=== PATIENT | male | born 1950 | race Caucasian/White ===

== ENCOUNTER 2022-01-01 13:04 | Emergency (ER) | payer MEDICARE ==
[2022-01-01 13:25] LABS: BASOPHILS # (AUTO) 0.1 10^3/uL (0.0-0.1); EOSINOPHILS # (AUTO) 0.2 10^3/uL (0.0-0.7); EOSINOPHILS % (AUTO) 3.6 %; HCT - HEMATOCRIT 45.6 % (42.0-52.0); HGB - HEMOGLOBIN 15.2 g/dL (14.0-18.0); LYMPHOCYTES # (AUTO) 1.8 10^3/uL (1.5-3.5); LYMPHOCYTES % (AUTO) 30.1 %; MEAN CORPUSCULAR HEMOGLOBIN 32.9 pg (27.0-31.0); MEAN CORPUSCULAR HGB CONC 33.3 g/dL (32.0-36.0); MEAN CORPUSCULAR VOLUME 98.7 fL (80.0-94.0); MONOCYTES # (AUTO) 0.7 10^3/uL (0.0-1.0); MONOCYTES % (AUTO) 10.6 %; NEUTROPHILS # (AUTO) 3.3 10^3/uL (1.5-6.6); NEUTROPHILS % (AUTO) 54.4 %; PLT - PLATELET COUNT 221 10^3/uL (130-450); RED BLOOD COUNT 4.62 10^6/uL (4.70-6.10); RED CELL DISTRIBUTION WIDTH 11.7 % (12.0-15.0); WHITE BLOOD COUNT 6.1 x10^3/uL (4.8-10.8)
[2022-01-01 13:37] LABS: ALBUMIN 4.3 g/dL (3.2-5.5); ALBUMIN/GLOBULIN RATIO 1.2 (1.0-2.2); BILIRUBIN,TOTAL 0.8 mg/dL (0.2-1.0); CALCIUM 9.6 mg/dL (8.5-10.3); CREATININE 0.9 mg/dL (0.6-1.2); POTASSIUM 4.6 mmol/L (3.5-5.0); TOTAL PROTEIN 7.8 g/dL (6.7-8.2)
--- NOTE | 2022-01-01 13:42 | XRAY Report ---
PROCEDURE: Chest 1 View X-Ray INDICATIONS: Chest Pain TECHNIQUE: One view of the chest was acquired. COMPARISON: None FINDINGS: Surgical changes and devices: None. Lungs and pleura: No pleural effusions or pneumothorax. Lungs are clear. Mediastinum: Mediastinal contours appear normal. Heart size is normal. Bones and chest wall: No suspicious bony lesions. Overlying soft tissues appear unremarkable. IMPRESSION: Chest without acute cardiopulmonary abnormalities or focal airspace disease. Reviewed by: Favio Fenton MD on 01/01/2022 1:40 PM PDT Approved by: Favio Fenton MD on 01/01/2022 1:40 PM PDT Station ID: [id number]
--- NOTE | 2022-01-01 13:47 | ED Physician Documentation ---
History of Present Illness - Stated complaint Stated Complaint: EXPERIENCING AFIB - Chief complaint Chief Complaint: Cardiac - Additonal information Additional information: [id number] male presents emergency department for evaluation of atrial fibrillation. He reports a history of paroxysmal atrial fib. Has had 2 ablations for treatment of such one in May 2019 and again in April 2020. Due to his [id number] 2 score he is on Eliquis only. He occasionally takes Metroprolol if he feels he has a high heart rate but is generally in sinus rhythm. The patient began noticing palpitations and a sensation of A. fib on Tuesday evening. He states he somewhat dyspneic when climbing steep stairs but is not having any chest pain or shortness of air otherwise. No orthopnea. No leg swelling. He is followed by [facility] Dr. Dickey. Review of Systems Constitutional: denies: Fever, Chills PD PAST MEDICAL HISTORY - Present Medications Home Medications: Ambulatory Orders Medication Instructions Recorded Confirmed diltiaZEM [Cardizem] 30 mg PO Q8H #90 tablet 01/01/22 - Allergies Allergies/Adverse Reactions: Allergies Allergy/AdvReac Type Severity Reaction Status Date / Time No Known Drug Allergies Allergy Verified 01/01/22 13:15 Results - Vitals Vitals: Vital Signs - 24 hr 01/01/22 13:08 Temperature 36.4 C L Heart Rate 124 H Respiratory 18 Rate Blood Pressure 133/86 H O2 Saturation 100 Oxygen O2 Source Room air - EKG (time done) 1306 Rate: Rate (enter#) (129) Rhythm: Atrial fibrillation, Other (with PVVC) [place]: LAD Intervals: No: Prolonged QT QRS: Normal Ischemia: Non specific changes Compare to prior EKG: Old EKG unavailable Computer interpretation: Agree with computer - Labs Labs: Laboratory Tests 01/01/22 01/01/22 13:20 13:20 WBC 6.1 RBC 4.62 L Hgb 15.2 Hct 45.6 MCV 98.7 H MCH 32.9 H MCHC 33.3 RDW 11.7 L Plt Count 221 MPV 10.0 Neut # (Auto) 3.3 Lymph # (Auto) 1.8 [place] # (Auto) 0.7 Eos # (Auto) 0.2 Baso # (Auto) 0.1 Absolute Nucleated RBC 0.00 Nucleated RBC % 0.0 Sodium 139 Potassium 4.6 Chloride 102 Carbon Dioxide 29 Anion Gap 8.0 BUN 24 H Creatinine 0.9 Estimated GFR (MDRD) 84 L Glucose 134 H Calcium 9.6 Total Bilirubin 0.8 AST 19 ALT 17 Alkaline Phosphatase 52 Total Protein 7.8 Albumin 4.3 Globulin 3.5 Albumin/Globulin Ratio 1.2 Lipase 67 H - Rads (name of study) cxr Radiology: Final report received (No acute cardiopulmonary process) PD MEDICAL DECISION MAKING - ED course Complexity details: reviewed results, re-evaluated patient, considered differential, d/w patient ED course: 71-year-old male presents emergency department for evaluation of atrial fibrillation which he reports he entered into now almost 48 hours ago. He reports that is typically paroxysmal and he is usually in sinus rhythm. He states that his [id number] 2 score is elevated and therefore he takes Eliquis daily. However he is not typically on any rate control agents as he is usually in sinus. He attempted home Valsalva maneuvers. He did also try a as needed dose of Metroprolol which he did not feel successfully converted him thus he presents today. He has no chest pain. Only mild dyspnea when climbing stairs but has otherwise been able to ride his bike and tolerate activities of daily living. No lower extremity swelling. On presentation alert and well-appearing. He is in atrial fibrillation with a rate of about 120. He was administered 10 mg of Cardizem which successfully slowed his heart rate into the 70s and 80s, though he remains atrial fibrilla tion. CBC and electrolytes showed no acute worrisome findings. Chest x-ray was unremarkable for age. We deferred a troponin given lack of chest pain. He is followed closely by Dr. Dickey through [facility] services. He will follow-up with him. In order to maintain good rate control he will be started on oral Cardizem. Otherwise emergent return precautions were discussed. - Critical Care Time(min): 15 Time Includes: Direct patient care, Reassess patient Departure - Departure Disposition: 01 Home, Self Care Clinical Impression: Atrial fibrillation Qualifiers: Atrial fibrillation type: unspecified Qualified Code(s): I48.91 - Unspecified atrial fibrillation Condition: Stable Record reviewed to determine appropriate education?: Yes Prescriptions: diltiaZEM [Cardizem] 30 mg PO Q8H #90 tablet Comments: Monty mejias came to the emergency department today because you have been in atrial fibrillation now for about 2 days. We gave you a one-time dose of Cardizem which slowed your heart rate from about 120 to the 80s. You are already on Eliquis. At this point with your atrial fibrillation the most important thing is long-term rate control. I have sent a prescription for Cardizem to the [facility] in [place]. You are to take this 3 times a day. Your [facility] may need to increase the dose over time in order to achieve appropriate rate control. Conversely your [facility] may look to refer you again to an rug designer for consideration of ablation. Return to the emergency department if you develop any chest pain, have severe shortness of air or any fainting episodes.
[2022-01-01] MEDS: diltiaZEM INJ 5 MG/ML VIAL IVP STA (13:52)
[2022-01-01 14:42] VITALS: BP 126/96
== END 2022-01-01 14:30 | disposition home or self-care (01) ==
LOC: ED 13:04
DX: I48.91 Unspecified atrial fibrillation (principal); Z79.01 Long term (current) use of anticoagulants
CPT/HCPCS: 36415; 80053; 83690; 85025; 93005; 96374; 99283

== ENCOUNTER 2022-11-01 08:00 | Outpatient (CLI) | payer MEDICARE, OTHER ==
--- NOTE | 2022-11-01 20:17 | XRAY Report ---
PROCEDURE: Ankle 3 View LT INDICATIONS: LEFT ANKLE PAIN TECHNIQUE: 3 views of the ankle were acquired. COMPARISON: None. FINDINGS: Bones: No acute fractures or dislocations. Small lesion adjacent to the medial malleolus may be the sequela of remote prior trauma. Ankle mortise is normally aligned. No suspicious bony lesions. Small posterior calcaneal enthesophytes. Soft tissues: Mild soft tissue edema surrounding the ankle. IMPRESSION: Mild nonspecific soft tissue edema surrounding the ankle. Small ossifications adjacent to the medial malleolus and most likely sequela of remote prior trauma, although recent avulsion injury is not excl uded. Consider MRI for further evaluation if symptoms persist. Reviewed by: Surya Valdez MD on 11/01/2022 8:16 PM PDT Approved by: Surya Valdez MD on 11/01/2022 8:16 PM PDT Station ID: [id number]
== END 2022-11-01 23:59 | disposition home or self-care (01) ==
LOC: DI.S 08:00
PROVIDERS: ATTEND Physician Assistant
DX: M25.572 Pain in left ankle and joints of left foot (principal)

== ENCOUNTER 2022-11-18 10:35 | Outpatient (CLI) | payer MEDICARE, OTHER ==
--- NOTE | 2022-11-18 16:27 | CT Report ---
PROCEDURE: LOWER EXTREMITY WO - LT INDICATIONS: LEFT ANKLE PAIN TECHNIQUE: Noncontrast 3-mm axial sections acquired from the distal tibial shaft to the talar dome, with coronal and sagittal reformats. For radiation dose reduction, the following was used: automated exposure c ontrol, adjustment of mA and/or kV according to patient size. COMPARISON: Left ankle radiographs 10/22/2022 FINDINGS: Image quality: Excellent. Bones: Small corticated ossifications are seen adjacent to the medial malleolus, which are likely th e sequela of a remote prior injury. No acute osseous fracture is seen. No osteochondral lesion is see n in the talar dome. Small ossifications are seen in the distal Achilles tendon near its insertion on to the posterior calcaneus. Soft tissues: No significant mortise joint effusion. There is moderate thickening of the Achilles te ndon and mild edema in Kager's fat pad. The articular cartilages, ligaments, and tendons are not well evaluated with standard CT. Mild subcutaneous edema is seen at the medial malleolus. The musculature of the foot is normal in bulk. IMPRESSION: 1.No acute osseous fracture or dislocation. Small ossifications adjacent to the medial malleolus are consistent with remote prior trauma. 2.Moderate Achilles tendinosis and mild peritenonitis. Reviewed by: Surya Valdez MD on 11/18/2022 4:26 PM PDT Approved by: Surya Valdez MD on 11/18/2022 4:26 PM PDT Station ID: [id number]
== END 2022-11-18 10:36 | disposition home or self-care (01) ==
LOC: DI 10:35
PROVIDERS: ATTEND Physician Assistant
DX: M67.874 Other specified disorders of tendon, left ankle and foot (principal); M76.62 Achilles tendinitis, left leg